=== PATIENT | female | born 1965 | race Caucasian/White ===

== ENCOUNTER 2018-05-17 09:51 | Outpatient (CLI) | payer OTHER ==
--- NOTE | 2018-05-17 12:59 | ULT ---
RIGHT BREAST ULTRASOUND: HISTORY: Small possible nodule at the 9 o'clock position close to the right nipple and right nipple discharge. FINDINGS: Correlation is made with the mammogram of the same day. Sonographic evaluation of region of palpable concern at the 9 o'clock position of the right subareola r breast demonstrates a 9 mm cyst. No abnormal ductal dilatation is identified. IMPRESSION: 1. BIRADS category 2 - benign findings. Return for annual mammographic screening. 2. Evaluation with breast MRI would be helpful if the patient's discharge is bloody. POS: PITO
== END 2018-05-17 09:52 | disposition home or self-care (01) ==
LOC: BICMAMMO 09:51
DX: N60.11 Diffuse cystic mastopathy of right breast (principal)
CPT/HCPCS: 77066; G0279

== ENCOUNTER 2020-04-01 12:34 | Outpatient (CLI) | payer OTHER ==
--- NOTE | 2020-04-01 14:09 | MMO ---
Bilateral MAMMO Bilat Screen [facility]. CLINICAL HISTORY: Patient is 54 years old and is seen for screening. The patient has the following family history of breast cancer: paternal aunt, malignant (generic). The patient has no personal history of cancer. The patient has a history of right Stereotatic Biopsy in April, - benign and bilateral Excisional Biopsy in 2002 - benign. VIEWS: The views performed were: bilateral craniocaudal with tomosynthesis; bilateral mediolateral oblique with tomosynthesis; and bilateral exaggerated craniocaudal. FILMS COMPARED: The present examination has been compared to prior imaging studies performed at [facility] on 02/27/2013, 03/01/2014, 03/05/2015 and 05/17/2018. This study has been interpreted with the assistance of computer-aided detection. MAMMOGRAM FINDINGS: The breasts are heterogeneously dense, which could obscure a lesion on mammography. Right biopsy clip. There are no suspicious masses, suspicious calcifications, or new areas of architectural distortion. IMPRESSION: THERE IS NO MAMMOGRAPHIC EVIDENCE OF MALIGNANCY. A ROUTINE FOLLOW-UP MAMMOGRAM IN 1 YEAR IS RECOMMENDED. THE RESULTS OF THIS EXAM WERE SENT TO THE PATIENT. ACR BI-RADS Category 2 - Benign finding MAMMOGRAPHY NOTE: 1. A negative mammogram report should not delay a biopsy if a dominant of clinically suspicious mass is present. 2. Approximately 10% to 15% of breast cancers are not detected by mammography. 3. Adenosis and dense breasts may obscure an underlying neoplasm. Reported by: CARMEN PARRA MD Electonically Signed: [id number]
== END 2020-04-01 12:35 | disposition home or self-care (01) ==
LOC: BICMAMMO 12:34
PROVIDERS: ATTEND Obstetrics & Gynecology
DX: Z12.31 Encounter for screening mammogram for malignant neoplasm of breast (principal); Z80.3 Family history of malignant neoplasm of breast; Z91.89 Other specified personal risk factors, not elsewhere classified
CPT/HCPCS: 77063; 77067